=== PATIENT | female | born 1990 | race American Indian/Alaskan Native ===

== ENCOUNTER 2020-05-30 08:00 | Day surgery (SDC) | payer MEDICAID ==
--- NOTE | 2020-05-21 12:19 | History and Physical Report ---
History of Present Illness Date of examination: 05/30/20 History of present illness: 30 yo will be for Lap BTL on 05/30/20. Pt s/p recent in February. BTL papers signed 12/17/19 Past History Past Medical History: other (anemia, HSV) Past Surgical History: no surgical history Social history: smoking Medications and Allergies Allergies Allergy/AdvReac Type Severity Reaction Status Date / Time No Known Allergies Allergy Unverified 05/22/20 17:32 Home Medications Medication Instructions Recorded Confirmed Last Taken Type No Known Home Medications [No 04/24/20 05/22/20 Unknown History Reported Home Medications] Active Meds: see RN charting Review of Systems All systems: negative (except HPI) - Vital Signs Vital signs: see EMR charting - Physical Exam Cardiovascular: Regular rate, No murmurs Lungs: Positive: Clear to auscultation, Normal air movement Abdomen: Positive: normal appearance, soft. Negative: tenderness Results Result Diagrams: 05/28/20 11:50 All other labs normal. Assessment and Plan - Patient Problems (1) Sterilization Current Visit: No Status: Acute Plan to address problem: Pt is for Lap BTL on 05/30. PT aware of approximately 11/999 risk of failure. Patient fully consented for the surgery. Risks, benefits, and alternatives were all discussed with the patient including risk of bleeding, infection, and potential for injury. Patient understands and accepts these risks. Patient agrees to proceed with surgery. All questions were answered. This H&P is up-to-date.
[2020-05-28 12:10] LABS: Hematocrit 39.4 % (30.3-42.9); Hemoglobin 12.7 gm/dl (10.1-14.3); Mean Corpuscular HGB Conc 32 % (30-34); Mean Corpuscular Volume 81 fl (79-97); Platelet Count 204 K/mm3 (140-440); Red Blood Count 4.87 M/mm3 (3.65-5.03); Red Cell Distribution Width 17.1 % (13.2-15.2)
[~2020-05-30 08:00] MED LIST: CELECOXIB 200 MG CAP PO NR; GABAPENTIN 300 MG CAP PO NR; LACTATED RINGERS 1,000 ML IV SCH; MAGNESIUM OXIDE 400 MG TAB PO SCH; MIDAZOLAM 2 MG/2 ML INJ IV NR
[2020-05-30] MEDS ORDERED: SCOPOLAMINE TRANSDERMAL PATCH 72 HR TD NR (08:47)
--- NOTE | 2020-05-30 08:48 | Anesthesia Consultation ---
Anesthesia Consult and Med Hx Date of service: 05/30/20 - Airway Anesthetic Teeth Evaluation: Good ROM Head & Neck: Adequate Mental/Hyoid Distance: Adequate Mallampati Class: Class II Intubation Access Assessment: Probably Good - Pulmonary Exam CTA: Yes - Cardiac Exam Cardiac Exam: RRR - Pre-Operative Health Status ASA Pre-Surgery Classification: ASA3 Proposed Anesthetic Plan: General - Pulmonary Hx Smoking: Yes Hx Respiratory Symptoms: No - Cardiovascular System Hx Hypertension: No Hx Heart Attack/AMI: No Hx Percutaneous Transluminal Coronary Angioplasty (PTCA): No - Central Nervous System CVA: No - Gastrointestinal Hx Gastroesophageal Reflux Disease: No - Endocrine Hx Renal Disease: No Hx Liver Disease: No Hx Insulin Dependent Diabetes: No Hx Non-Insulin Dependent Diabetes: No Hx Thyroid Disease: No - Hematic Hx Anemia: Yes - Other Systems Hx Obesity: Yes (BMI 44) - Additional Comments Anesthesia Medical History Comments: No prior GA. No FHx anesthetic complicati ons.
--- NOTE | 2020-05-30 08:48 | Anesthesia Day of Surgery ---
Anesthesia Day of Surgery - Day of Surgery Patient Examined: Yes Patient H&P Reviewed: Yes Patient is NPO: Yes
[2020-05-30] MEDS ORDERED: HYDROmorphone 1 MG/1 ML INJ ONE (09:41)
[2020-05-30] MEDS ORDERED: propofoL 200 MG/20 ML VIAL IV ONE (09:41)
[2020-05-30] MEDS ORDERED: LIDOCAINE MPF (2%) 20 MG/1 ML VIAL 5 ML ONE (09:42)
[2020-05-30] MEDS ORDERED: ROCURONIUM 50 MG/5 ML INJ IV ONE (09:42)
[2020-05-30] MEDS ORDERED: BUPIVACAINE/PF (0.5%) 5 MG/1 ML 30 ML VIAL INFILTRATI ONE ×2 (09:43→10:45)
[2020-05-30] MEDS ORDERED: SODIUM CHLORIDE 0.9% IRR 1,500 ML BOTTLE IR ONE (10:46)
[2020-05-30] MEDS ORDERED: dexAMETHasone 20 MG/5 ML VIAL ONE (10:49)
[2020-05-30] MEDS ORDERED: ONDANSETRON 4 MG/2 ML INJ ONE (10:49)
[2020-05-30] MEDS ORDERED: KETOROLAC 30 MG/1 ML INJ ONE (10:55)
[2020-05-30] MEDS ORDERED: GLYCOPYRROLATE 0.4 MG/2 ML INJ ONE (10:56)
[2020-05-30] MEDS ORDERED: NEOSTIGMINE 10MG/10 ML INJ MDV ONE (10:56)
--- NOTE | 2020-05-30 11:14 | Post Operative Note ---
Date of procedure: 05/30/20 Pre-op diagnosis: Sterilization Post-op diagnosis: same Findings: Normal uterus, tubes, and ovaries. General abdominal/pelvic survey showed no gross anomalies. Procedure: Indication: 30-year-old G5, P5 is here for sterilization. Procedure: Laparoscopic bilateral tubal ligation. Patient taken the operating room and prepped and draped in usual fashion. Attention was first turned vaginally where single-tooth tenaculum was applied to the anterior lip of the cervix and an acorn uterine manipulator was placed. Attention was now turned abdominally where a 5 mm incision was made in the umbilicus. Veres needle then placed in the abdominal cavity. The abdomen was appropriately insufflated with CO2 gas. Veres needle removed and the 5 mm trocar was placed in abdominal cavity. Placement confirmed with the camera. Attention was turned suprapubically where an 8 mm incision was made and the 8 mm trocar was placed suprapubically in the midline under direct visualization. Trocar placed successfully and without difficulty. Attention was first turned to assess in the abdomen and pelvis. Findings noted above. Attention turned to the tubal ligation where a Filshie clip was applied to each tube. Each clip encompassed the full width of the tube on each side and good hemostasis was noted afterwards on both sides. At this point the abdomen was fully desufflated. Trochars were removed. Trocar sites were closed with 4-0 Vicryl in a subcuticular fashion followed by Marcaine. The acorn uterine manipulator and single-tooth tenaculum were removed. Procedure concluded at this point. Patient tolerated the procedure well. All instrument lap counts were correct. Patient taken to the recovery room in stable condition. Anesthesia: GETA Surgeon: CRYSTAL IQBAL Estimated blood loss: minimal Pathology: none Condition: stable Disposition: PACU
--- NOTE | 2020-05-30 11:18 | Short Stay Summary ---
Short Stay Documentation Date of service: 05/30/20 Narrative H&P: Patient had an uncomplicated laparoscopic tubal ligation 05/30/20. Please see H&P and operative report for details. Patient sent home in stable condition and advised to follow-up in the office in 2 weeks. - History H&P: dictated Social history: smoking - Allergies and Medications Current Medications: Allergies No Known Allergies Allergy (Verified 05/30/20 09:36) Home Medications Medication Instructions Recorded Confirmed Last Taken Type No Known Home Medications [No 04/24/20 05/22/20 Unknown History Reported Home Medications] Active Medications Celecoxib (Celebrex) 200 mg PO PREOP NR Stop: 05/30/20 20:00 Last Admin: 05/30/20 09:55 Dose: 200 mg Documented by: Gabapentin (Gabapentin) 300 mg PO PREOP NR Stop: 05/30/20 22:00 Last Admin: 05/30/20 09:55 Dose: 300 mg Documented by: Hydromorphone HCl (Dilaudid) 0.5 mg IV Q10MIN PRN PRN Reason: Pain , Severe (7-10) Stop: 05/30/20 23:00 Lactated Ringer's (Lactated Ringers) 1,000 mls @ 100 mls/hr IV DIRECT BRIGHT Stop: 05/30/20 23:59 Last Admin: 05/30/20 09:55 Dose: 100 mls/hr Documented by: Magnesium Oxide (Mag-Ox) 400 mg PO PREOP BRIGHT Stop: 05/30/20 22:00 Last Admin: 05/30/20 09:55 Dose: 400 mg Documented by: Midazolam HCl (Versed) 2 mg IV PREOP NR Stop: 05/30/20 20:00 Last Admin: 05/30/20 09:57 Dose: 2 mg Documented by: Scopolamine (Transderm-Scop) 1 each TD PREOP NR Stop: 05/30/20 23:00 Last Admin: 05/30/20 09:55 Dose: 1 each Documented by: - Disposition Condition at discharge: Stable Disposition: DC-01 TO HOME OR SELFCARE - Discharge Diagnoses (1) Sterilization Status: Acute Short Stay Discharge Plan Follow up with: PRIMARY CARE,MD [Primary Care Provider] - 7 Days
[2020-05-30] MEDS: HYDROmorphone 1 MG/1 ML INJ IV PRN ×2 (11:22→11:35)
[2020-05-30 12:42] VITALS: BP 148/70
--- NOTE | 2020-05-30 14:29 | Post Anesthesia Evaluation ---
- Post Anesthesia Evaluation Patient Participated: Yes Airway Patent: Yes Stable Respiratory Function: Yes Nausea/Vomiting: No Temp > 96.8F: Yes Pain Manageable: Yes Adequeate Hydration: Yes Anesthesia Complications: No
== END 2020-05-30 13:10 | disposition home or self-care (01) ==
LOC: OR 08:00
PROVIDERS: ATTEND Obstetrics & Gynecology
DX: Z30.2 Encounter for sterilization (principal); Z20.828 Contact with and (suspected) exposure to other viral communicable diseases; F17.210 Nicotine dependence, cigarettes, uncomplicated; E66.9 Obesity, unspecified; Z79.899 Other long term (current) drug therapy; Z87.440 Personal history of urinary (tract) infections; Z72.89 Other problems related to lifestyle; Z98.890 Other specified postprocedural states; Z68.41 Body mass index [BMI] 40.0-44.9, adult; Z86.2 Personal history of diseases of the blood and blood-forming organs and certain disorders involving the immune mechanism
CPT/HCPCS: 36415; 58671; 84703; 85027; J1100; J1170; J1885; J2250; J2405; J2704; J2710; J7120; U0003